=== PATIENT | male | born 1960 ===

== ENCOUNTER 2024-05-11 21:49 | Emergency (ER) | payer MEDICARE ==
[2024-05-11] MEDS: Bacitracin Oint 1 GM U/D Packet TOP PRN (22:52)
[2024-05-11] MEDS: Lidocaine 1% with EPINEPHrine 1:100,000 20 ML MDV INJECT ONE (22:53)
[2024-05-11 23:05] VITALS: BP 109/77; PULSE 58
== END 2024-05-11 22:45 | disposition home or self-care (01) ==
LOC: LB.ED 21:49
DX: S61.211A Laceration without foreign body of left index finger without damage to nail, initial encounter (principal); I10 Essential (primary) hypertension; X50.0XXA Overexertion from strenuous movement or load, initial encounter
CPT/HCPCS: 12002; 99283